=== PATIENT | female | born 1945 ===

== ENCOUNTER 2018-05-09 09:30 | Observation (INO) | payer OTHER, MEDICARE ==
[2018-05-06 12:32] VITALS: BMI 24.5
[2018-05-09] MEDS ORDERED: Lidocaine PF 2% (5 ml) Inj (For Cardiac Arrhy) ONE ×3 (09:56→10:46)
[2018-05-09] MEDS ORDERED: Iodixanol 320 MG/ML 200 ML BOTTLE IV ONE (09:57)
[2018-05-09] MEDS ORDERED: Nitroglycerin 50mg in D5W 50 MG/250 ML BOTTLE IV ONE (09:57)
[2018-05-09] MEDS ORDERED: Iohexol 350mgl/ml 50 ML ONE (09:57)
[2018-05-09] MEDS ORDERED: Midazolam 2 MG/2 ML VIAL ONE (10:06)
[2018-05-09] MEDS ORDERED: Sodium Chloride 0.9% 1,000 ML IV SCH (11:00)
--- NOTE | 2018-05-09 12:10 | CP.PCM.CON ---
<AlexisAnirudh - Last Filed: 05/09/18 12:00> History of Present Illness - History of Present Illness History of Present Illness: ICU consult note: Alexis PGY - 2 Reason for consult: Post Cath monitoring HPI: 73 year old female with pertinent medical history of DM, HTN, and HLD originally presented to [facility] on 05/06/18 with complaints of chest pain. At that time, EKG, CXR, and troponins were all normal. Dr. Aaron saw that patient and recommended patient for catheterization, which showed multi- vessel occlusion with 99% occlusion of LAD. Patient was sent here to [facility] for Stenting, and is under ICU management s/p DEBBIE placement to LAD. At present, patient denies any complaints including cath site pain, chest pain, or shortness of breath. Review of Systems: 12 point ROS obtained and negative except as per HPI PMD: Dr. Alfredo Glass Finisher: Dr. Aaron Oncologist: Dr. Wes Jason SurgHx: L mastectomy 2014; cholecystectomy 2013; b/l cataract; retinal surgery MHx: DM, HTN, HLD, and breast cancer Allergies: PCN (rash) SocHx: Denies tobacco and drug use; admits to social etoh use es with , [place] ([phone]) in Home Meds: Anastrozole 1mg daily, losartan 25mg po daily, glipizide 10mg po daily, simvastatin 20mg daily, metformin 500mg po bid. FamHx: Mother-MIx2, CHF; Father- Angina, CHF; Sister- Breast ca. Past Patient History - Past Medical History & Family History Past Medical History?: Yes - Past Social History Smoking Status: Never Smoked - CARDIAC Hx Hypercholesterolemia: Yes Hx Hypertension: Yes - PULMONARY Hx Respiratory Disorders: No - NEUROLOGICAL Hx Neurological Disorder: No - HEENT Hx HEENT Problems: Yes Hx Glaucoma: Yes - RENAL Hx Chronic Kidney Disease: No - ENDOCRINE/METABOLIC Hx Endocrine Disorders: Yes Hx Diabetes Mellitus Type 2: Yes - HEMATOLOGICAL/ONCOLOGICAL Hx Blood Disorders: Yes Hx Cancer: Yes (LEFT BREAST) - INTEGUMENTARY Hx Dermatological Problems: No - MUSCULOSKELETAL/RHEUMATOLOGICAL Hx Arthritis: Yes (feet) Hx Falls: No - GASTROINTESTINAL Hx Gall Bladder Disease: Yes - GENITOURINARY/GYNECOLOGICAL Hx Genitourinary Disorders: No - PSYCHIATRIC Hx Anxiety: Yes Hx Substance Use: No - SURGICAL HISTORY Hx Cholecystectomy: Yes - ANESTHESIA Hx Anesthesia: Yes Hx Anesthesia Reactions: No Meds Allergies/Adverse Reactions: Allergies Allergy/AdvReac Type Severity Reaction Status Date / Time Penicillins Allergy RASH Verified 05/06/18 12:52 seafood (anaphylaxis) Allergy ANAPHYLAXIS Uncoded 05/07/18 18:23 - Medications Medications: Current Medications Acetaminophen (Tylenol 325mg Tab) 650 mg PO Q4H PRN PRN Reason: Pain, Mild (1-3) Sodium Chloride (Sodium Chloride 0.9%) 1,000 mls @ 50 mls/hr IV .Q20H PARVEEN Physical Exam - Constitutional Appears: Well, Non-toxic, No Acute Distress Additional comments: Patient is well aware and knowledgeable about her condition - Head Exam Head Exam: ATRAUMATIC, NORMAL INSPECTION, NORMOCEPHALIC - Eye Exam Eye Exam: EOMI, Normal appearance, PERRL Pupil Exam: NORMAL ACCOMODATION, PERRL - ENT Exam ENT Exam: Mucous Membranes Moist, Normal Exam - Neck Exam Neck exam: Positive for: Normal Inspection - Respiratory Exam Respiratory Exam: Clear to Auscultation Bilateral, NORMAL BREATHING PATTERN. absent: Rales, Rhonchi, Wheezes - Cardiovascular Exam Cardiovascular Exam: REGULAR RHYTHM, RRR, +S1, +S2. absent: Gallop, Systolic Murmur - GI/Abdominal Exam GI & Abdominal Exam: Normal Bowel Sounds, Soft. absent: Tenderness - Extremities Exam Extremities exam: Positive for: normal capillary refill, normal inspection. Negative for: joint swelling, pedal edema Additional comments: Right sided cath site in groin is healed, clean, dry, intact, with no signs of abnormal scarring or infection Left sided cath site in groin is clean/dry/intact with no signs of infection. Covered with pressure dressing - Back Exam Back exam: NORMAL INSPECTION - Neurological Exam Neurological exam: Alert, CN II-XII Intact, Normal Gait, Oriented x3, Reflexes Normal - Psychiatric Exam Psychiatric exam: Normal Affect, Normal Mood - Skin Skin Exam: Dry, Intact, Normal Color, Warm Assessment & Plan - Assessment and Plan (Free Text) Assessment: 73 year old female under ICU management for post-cath monitoring s/p DEBBIE placement in LAD Unstable Angina VS NSTEMI - Resolved Hx DM Hx HTN Hx HLD Hx Breast CA Patient spilled minor tropes on 05/06, possibly 2/2 demand ischemia VS NSTEMI. Plan: - Continue with ASA, Plavix, Statins, and Beta blockers - Okay to resume diet - HHD - IVF with NS at 50 mls/hr - Bedrest flat on back for 3 hours; HOB elevated; Apply pressure dressing - Monitor vital signs: q15 mins for 2 hours q30 mins for 2 hours q01 hour for 2 hours q08 hour after that - Monitor distal pulses: q15 mins for 2 hours q30 mins for 2 hours q01 hour for 2 hours q08 hour after that - Assess cath insertion site: q15 mins for 2 hours q30 mins for 2 hours q01 hour for 2 hours q08 hour after that <Av Dawkins - Last Filed: 05/13/18 13:47> Results - Vital Signs Recent Vital Signs: Last Vital Signs Temp 98.6 F 05/09/18 11:12 Pulse 74 05/09/18 15:57 Resp 14 05/09/18 12:42 BP 124/76 05/09/18 15:57 Pulse Ox Attending/Attestation - Attestation I have personally seen and examined this patient.: Yes I have fully participated in the care of the patient.: Yes I have reviewed all pertinent clinical information: Yes Notes (Text): 05/13/18 13:46 73 yo s/p PCI waiting to go back to after procedure. DAP, bb, statins, ACEI. VSS, not in respiratory distress. ccm time 40 min
--- NOTE | 2018-05-09 14:57 | CARD ---
APPROVED REPORT Date of service: 05/09/2018 EKG Measurement Heart [id number] <Conclusion> Normal sinus rhythm Septal infarct, age undetermined T wave abnormality, consider anterior ischemia Abnormal ECG
[2018-05-09 15:36] VITALS: TEMP 98.6
--- NOTE | 2018-05-09 15:49 | CARDCATH ---
Copied To: Oscar Aaron MD Attending MD: Oscar Aaron MD PROCEDURE DATE: 05/09/2018 PROCEDURE: Left anterior descending coronary artery balloon angioplasty and drug-eluting stent placement. CLINICAL INDICATIONS: 1. Chest pain. 2. Non-ST elevation myocardial infarction. 3. Coronary artery disease. 4. Hypertension. 5. Hyperlipidemia. 6. Acute systolic congestive heart failure. REFERRING PHYSICIAN: Faye Alfredo MD. PERFORMING PHYSICIAN: Oscar Aaron MD. PROCEDURE: After informed consent, the patient was prepped and draped in the usual sterile fashion. 2% lidocaine was given in the left groin for local anesthesia. Using micropuncture technique, 6-Spanish sheath was introduced into left common femoral artery. The patient was preloaded with aspirin, Plavix and IV heparin. ACT maintained above 250. Left main coronary artery engaged using XBLAD 3.5 guide catheter. Left coronary angiogram was performed. The left coronary angiogram revealed critical 99% mid LAD stenosis. There was a [place]-1 flow distally. Left anterior descending coronary artery was threaded using Runthrough coronary wire. The lesion was predilated using 2 x 20 Compliant balloon. Later stented with 2.25 x 26 Resolute [place] drug-eluting stent. Excellent final angiographic results with brisk [place]-3 flow noted. CONCLUSION: Successful left anterior descending coronary artery intervention with drug-eluting stent. Postprocedure, there is brisk CL[place]-3 flow noted. The patient will be electively intervened on left circumflex and right coronary artery as outpatient. The patient will be transferred to ICU for further observation. Oscar Aaron MD
[2018-05-09 15:58] VITALS: BP 124/76; PULSE 74
[2018-05-09 16:11] VITALS: RESP 14
== END 2018-05-09 16:14 | disposition short-term general hospital (02) ==
LOC: CATH 09:30 → ICU 11:12
PROVIDERS: ADMIT Internal Medicine Cardiovascular Disease; ATTEND Internal Medicine Cardiovascular Disease
DX: I21.4 Non-ST elevation (NSTEMI) myocardial infarction (principal); I25.10 Atherosclerotic heart disease of native coronary artery without angina pectoris; I50.21 Acute systolic (congestive) heart failure; I11.0 Hypertensive heart disease with heart failure; E11.9 Type 2 diabetes mellitus without complications; E78.00 Pure hypercholesterolemia, unspecified; Z85.3 Personal history of malignant neoplasm of breast; Z82.49 Family history of ischemic heart disease and other diseases of the circulatory system
CPT/HCPCS: 85175; 93005; 99152; 99153; C1725; C1760; C1769; C1874; C1887; C1894; C9600; G0378; J1644; J2250; J3010; J7030; J7040; Q9966; Q9967

== ENCOUNTER 2018-06-18 12:02 | Day surgery (SDC) | payer MEDICARE ==
[2018-06-14 13:23] VITALS: BMI 25.9
[2018-06-18 12:56] VITALS: O2SAT 100
[2018-06-18 13:04] LABS: BASO # 0.02 K/mm3 (0.0-2.0); BASO % 0.4 % (0.0-3.0); EOS # 0.1 (0.0-0.7); GRAN # 2.56 (1.4-6.5); GRAN % 55.5 % (50.0-68.0); HEMOGLOBIN 11.5 g/dL (12.0-16.0); LYMPH # 1.5 (1.2-3.4); LYMPH % 32.8 % (22.0-35.0); MEAN CELL VOLUME 85.1 fl (80.0-105.0); MEAN CORPUSCULAR HEMOGLOBIN 28.1 pg (25.0-35.0); MONO # 0.4 (0.1-0.6); MONO % 9.3 % (1.0-6.0); RBC 4.09 10^6/uL (3.5-6.1); RED CELL DISTRIBUTION WIDTH 13.5 % (11.5-14.5); WHITE BLOOD COUNT 4.6 10^3/ul (4.5-11.0)
[2018-06-18 13:10] LABS: BLOOD UREA NITROGEN 15 mg/dL (7-21); CALCIUM 9.5 mg/dL (8.4-10.5); GFR NON-AFRICAN AMERICAN > 60; HDL CHOLESTEROL 46 mg/dL (29-60)
[2018-06-18 13:13] LABS: INR 1.02; PARTIAL THROMBOPLASTIN TIME 41.3 Seconds (25.1-36.5); PROTHROMBIN TIME 11.6 SECONDS (9.4-12.5)
[2018-06-18 13:21] LABS: LDL CHOLESTEROL 47 mg/dL (0-129)
[2018-06-18] MEDS ORDERED: Lidocaine PF 2% (5 ml) Inj (For Cardiac Arrhy) ONE (14:00)
[2018-06-18] MEDS ORDERED: Phenylephrine 10 mg/ml Inj ONE (14:00)
[2018-06-18] MEDS ORDERED: Iodixanol 320 MG/ML 200 ML BOTTLE IV ONE (14:01)
[2018-06-18] MEDS ORDERED: Iohexol 350mgl/ml 50 ML ONE (14:01)
[2018-06-18] MEDS ORDERED: DiphenhydrAMINE 50 mg/ml Inj ONE (14:10)
[2018-06-18] MEDS ORDERED: Famotidine 20mg/50ml 20 MG/50 ML BAG IVPB ONE (14:10)
[2018-06-18] MEDS ORDERED: Midazolam 2 MG/2 ML VIAL ONE (14:17)
[2018-06-18] MEDS ORDERED: Sodium Chloride 0.45% 1,000 ML IV SCH (15:00)
--- NOTE | 2018-06-18 15:12 | CP.PCM.PN ---
Subjective - Date & Time of Evaluation Date of Evaluation: 06/18/18 Time of Evaluation: 15:09 - Subjective Subjective: 73 F with hx of CAD s/p LAD stent, Isch CMP Here for L Cx and RCA intervention S/P cath EF improved to 55% LAD stent patent L Cx/RCA borderline lesions with tortuousity No intervention needed at this time Continue home meds D/C home tonght at 8pm with transport F/U Dr. Aaron this Sunday at 4pm Patient no longer need to wear the LifeVest Objective - Vital Signs/Intake and Output Vital Signs (last 24 hours): Temp Pulse Resp BP Pulse Ox 97.5 F L 63 18 146/49 L 100 06/18/18 12:52 06/18/18 12:52 06/18/18 12:52 06/18/18 12:52 06/18/18 12:52 - Medications Medications: Current Medications Sodium Chloride (Sodium Chloride 0.45%) 1,000 mls @ 60 mls/hr IV [id number] PARVEEN - Labs Labs: 06/18/18 12:45 06/18/18 12:45 PT 11.6 SECONDS (9.4-12.5) 06/18/18 12:45 INR 1.02 06/18/18 12:45 APTT 41.3 Seconds (25.1-36.5) H 06/18/18 12:45
[2018-06-18 18:01] VITALS: TEMP 98.7
--- NOTE | 2018-06-18 20:29 | CARD ---
APPROVED REPORT Date of service: 06/18/2018 EKG Measurement Heart [id number] <Conclusion> Normal sinus rhythm Septal infarct, age undetermined T wave abnormality, consider anterior ischemia Abnormal ECG
[2018-06-18 20:55] VITALS: RESP 18
[2018-06-18 22:13] VITALS: BP 96/56; PULSE 91
--- NOTE | 2018-06-23 17:14 | CARDCATH ---
PROCEDURE DATE: 06/18/2018 PROCEDURES: 1. Left heart catheterization. 2. Coronary angiogram. REFERRING PHYSICIAN: Faye Alfredo MD PERFORMING PHYSICIAN: Oscar Aaron MD CLINICAL INDICATIONS: 1. Angina. 2. History of coronary artery disease, status post LAD stent placement. 3. Hyperlipidemia. 4. Diabetes. PROCEDURE: After informed consent, patient was prepped and draped in the usual sterile fashion. A 2% lidocaine was given in the right groin for the local anesthesia. Using micropuncture technique, 6-Kenyan sheath was introduced into right common femoral artery. JL4 6-Kenyan diagnostic catheter engaged into left main coronary artery. Contrast was injected and left coronary angiogram was done. Then the catheter was exchanged to JR4 6-Kenyan diagnostic catheter. The catheter engaged into right coronary artery. Contrast injected and right coronary angiogram was done. The pigtail catheter was introduced in the right ventricle across the aortic valve. Contrast injected and LV angiogram was done. LV end-diastolic pressure was measured. The catheters was pulled back across the aortic wall. Gradient across the aortic valve was measured. Patient tolerated the procedure well. Postprocedure, radiological supervision and radiological interpretation of the thermal imaging was done. FINDINGS: 1. Left main coronary artery is patent. 2. LAD prior stent is patent. Distal LAD has 40% stenosis. Diagonal branches are patent. 3. Left circumflex is tortous calcific artery. Left circumflex coronary artery is patent. A diagonal obtuse marginal 1 artery has a 80% to 85% calcific stenosis. 4. Right coronary artery is dominant. Calcific and tortuous right coronary artery. [place] distal right coronary artery has approximately 80% to 85% stenosis. PDA has 99% stenosis. 5. LV ejection fraction was approximately 55%. Mild anterior wall hypokinesis. EDP is 20. No gradient across the aortic valve. IMPRESSION: 1. Prior left anterior descending stent is patent. 2. Calcific tortous left circumflex and right coronary artery disease. 3. Improved left ventricular function compared to prior catheterization. Ejection fraction right now is around 55%. Due to calcification and tortuosity, we will continue medical management only. If patient continues to have symptoms with maximal medication. We will pursue intervention of the right coronary and left circumflex coronary artery. Since ejection fraction has improved, patient is advised to discontinue LifeVest for now. Oscar Aaron MD [facility] # [id number]
== END 2018-06-18 22:15 | disposition home or self-care (01) ==
LOC: CATH 12:02 → 2RSO 15:55 → CATH 22:15
PROVIDERS: ATTEND Internal Medicine Cardiovascular Disease
DX: I25.119 Atherosclerotic heart disease of native coronary artery with unspecified angina pectoris (principal); I25.5 Ischemic cardiomyopathy; E11.9 Type 2 diabetes mellitus without complications; E78.5 Hyperlipidemia, unspecified; Z95.5 Presence of coronary angioplasty implant and graft; Z79.84 Long term (current) use of oral hypoglycemic drugs
CPT/HCPCS: 36415; 80048; 80061; 85025; 85610; 85730; 86850; 86900; 93005; 93458; 99152; 99153; C1760; C1769; C1894; J0360; J1200; J1644; J2250; J2930; J3010; J7030; Q9966

== ENCOUNTER 2018-12-17 07:33 | Day surgery (SDC) | payer OTHER, MEDICARE | END 2018-12-17 18:44 | disposition short-term general hospital (02) | LOC: CATH 07:33 → 2RSO 09:53 → CATH 18:44 ==